=== PATIENT | female | born 1965 | race Caucasian/White ===

== ENCOUNTER 2022-11-27 10:44 | Emergency (ER) | payer OTHER ==
[~2022-11-27] VITALS: Ht 152.4 cm; Wt 77.6 kg
[~2022-11-27 10:44] MED LIST: Motrin,Rufen800 MG PO; Orphenadrine C100 MG PO
[2022-11-27 10:52] VITALS: BP 144/107
[2022-11-27 11:38] LABS: EOS % 0.5 % (1.0-4.0); HEMATOCRIT 40.1 % (37.0-47.0); LYMPH # 1.1 10*3/uL (1.3-4.4); LYMPH % 28.2 % (27.0-41.0); MEAN CELL VOLUME 97.3 fl (81.0-99.0); MEAN CORPUSCULAR HGB 31.6 pg (27.0-31.0); MEAN CORPUSCULAR HGB CONC 32.4 g/dl (33.0-37.0); MEAN PLATELET VOLUME 9.1 fl (9.6-12.3); MONO # 0.3 10*3/uL (0.1-1.0); MONO % 6.9 % (3.0-9.0); NEUT # 2.5 10*3/uL (2.3-7.9); NEUT % 63.1 % (47.0-73.0); PLATELET COUNT AUTOMATED 387 10*3/uL (130-400); RED BLOOD COUNT 4.12 10*6/uL (4.10-5.10); RED CELL DISTRI WIDTH 13.2 % (0-14.5); WHITE BLOOD COUNT 3.9 10*3/uL (4.8-10.8)
[2022-11-27 11:53] LABS: ALKALINE PHOSPHATASE 72 U/L (46-116); BUN 9 mg/dl (9-23); CHLORIDE 108 mmol/L (98-107); POTASSIUM 3.7 mmol/L (3.4-5.1); SGPT/ALT 26 U/L (10-49); TOTAL PROTEIN 7.1 gm/dL (6.0-8.0)
== END 2022-11-27 12:16 | disposition home or self-care (01) ==
LOC: ED 10:44
PROVIDERS: Nurse Practitioner Family
DX: S01.01XA Laceration without foreign body of scalp, initial encounter (principal); W18.30XA Fall on same level, unspecified, initial encounter; Y93.89 Activity, other specified; Y92.89 Other specified places as the place of occurrence of the external cause; Y99.8 Other external cause status

== ENCOUNTER 2024-03-17 15:06 | Emergency (ER) | payer OTHER ==
[~2024-03-17] VITALS: Ht 152.4 cm; Wt 86.2 kg
[~2024-03-17 15:06] MED LIST changes: +'XANAX0.5 MG PO; +BUSPAR5 MG PO; +CELECOXIB200 M1 PO; +CLARITIN10 MG PO; +DULOXETINE HCL60 MG PO; +METAMUCIL PACK3.4 GM PO; +NEXIUM 24HR20 M1 PO; +SIMVASTATIN20 MG PO; +SUMATRIPTAN SU100 M1 PO; +TRAZODONE50 MG PO
[2024-03-17] MEDS ORDERED: Ondansetron Hydrochloride 4 MG/2 ML VIAL IV ONE (15:50)
[2024-03-17 16:05] LABS: BASO % 0.7 % (0.0-1.0); EOS % 0.7 % (1.0-4.0); HEMATOCRIT 40.7 % (37.0-47.0); LYMPH # 2.4 10*3/uL (1.3-4.4); MEAN CELL VOLUME 98.3 fl (81.0-99.0); MEAN CORPUSCULAR HGB 30.9 pg (27.0-31.0); MEAN CORPUSCULAR HGB CONC 31.4 g/dl (33.0-37.0); MEAN PLATELET VOLUME 8.9 fl (9.6-12.3); MONO # 0.4 10*3/uL (0.1-1.0); MONO % 6.6 % (3.0-9.0); NEUT # 2.6 10*3/uL (2.3-7.9); NEUT % 47.8 % (47.0-73.0); PLATELET COUNT AUTOMATED 290 10*3/uL (130-400); RED BLOOD COUNT 4.14 10*6/uL (4.10-5.10); RED CELL DISTRI WIDTH 12.2 % (0-14.5); WHITE BLOOD COUNT 5.5 10*3/uL (4.8-10.8)
[2024-03-17 16:16] LABS: ACT PARTIAL THROMBO TIME 27.9 SECONDS (20.0-32.1)
[2024-03-17 16:30] LABS: ALKALINE PHOSPHATASE 87 U/L (46-116); BUN 12 mg/dl (9-23); CHLORIDE 108 mmol/L (98-107); SGPT/ALT 14 U/L (5-49); TOTAL PROTEIN 6.7 gm/dL (6.0-8.0)
[2024-03-17] MEDS ORDERED: SODIUM CHLORIDE 0.9% 500 ML IV ONE (17:20)
[2024-03-17] MEDS ORDERED: diphenhydrAMINE hydrochloride 50 MG/ML VIAL IV ONE (17:20)
[2024-03-17] MEDS ORDERED: Metoclopramide Hydrochloride 10 MG/2 ML AMP IV ONE (17:20)
[2024-03-17] MEDS ORDERED: Ketorolac Tromethamine 30 MG/ML VIAL IV ONE (17:20)
[2024-03-17 18:52] VITALS: BP 118/70
== END 2024-03-17 18:53 | disposition home or self-care (01) ==
LOC: ED 15:06
PROVIDERS: Nurse Practitioner Family
DX: R55 Syncope and collapse (principal); G43.909 Migraine, unspecified, not intractable, without status migrainosus; R07.89 Other chest pain; R42 Dizziness and giddiness; F41.9 Anxiety disorder, unspecified; E78.00 Pure hypercholesterolemia, unspecified; I10 Essential (primary) hypertension; E87.0 Hyperosmolality and hypernatremia; E78.5 Hyperlipidemia, unspecified; F32.A Depression, unspecified; I25.10 Atherosclerotic heart disease of native coronary artery without angina pectoris; Z88.8 Allergy status to other drugs, medicaments and biological substances

== ENCOUNTER 2024-07-19 18:23 | Inpatient (IN) | payer OTHER ==
[~2024-07-19] VITALS: Ht 157.5 cm; Wt 84.6 kg
[2024-07-19] MEDS ORDERED: FAMOTIDINE 50 ML IV ONE (18:30)
[2024-07-19] MEDS ORDERED: Metoclopramide Hydrochloride 10 MG/2 ML AMP IV ONE (18:30)
[2024-07-19] MEDS ORDERED: SODIUM CHLORIDE 0.9% 1,000 ML IV ONE ×3 (18:30→18:35)
[2024-07-19] MEDS ORDERED: diphenhydrAMINE hydrochloride 50 MG/ML VIAL IV ONE (18:30)
[2024-07-19 18:33] VITALS: BP 120/63
[2024-07-19] MEDS ORDERED: ACETAMINOPHEN 325 MG TAB PO ONE (18:40)
[2024-07-19 18:55] VITALS: BP 126/87
[2024-07-19] MEDS ORDERED: Metoprolol Tartrate 5 MG/5 ML VIAL IV ONE (19:00)
[2024-07-19 19:08] LABS: HEMATOCRIT 44.1 % (37.0-47.0); MEAN CELL VOLUME 96.3 fl (81.0-99.0); MEAN CORPUSCULAR HGB 31.2 pg (27.0-31.0); MEAN CORPUSCULAR HGB CONC 32.4 g/dl (33.0-37.0); MEAN PLATELET VOLUME 8.9 fl (9.6-12.3); PLATELET COUNT AUTOMATED 322 10*3/uL (130-400); RED BLOOD COUNT 4.58 10*6/uL (4.10-5.10)
[2024-07-19 19:09] LABS: MANUAL DIFF REFLEX YES
[2024-07-19 19:33] LABS: BUN 13 mg/dl (9-23); CHLORIDE 111 mmol/L (98-107); PLATELET SUFFICIENCY NORMAL (NORMAL); POTASSIUM 3.5 mmol/L (3.4-5.1); TOTAL CELLS COUNTED 100 #CELLS
[2024-07-19 20:33] VITALS: BP 105/56
[2024-07-19 21:50] LABS: BILIRUBIN Negative (Negative); BLOOD 1+ (Negative); CLARITY Clear (Clear); COLOR Yellow (Yellow); GLUCOSE Negative (Negative); KETONE Negative (Negative); LEUKO ESTERASE Negative (Negative); NITRITE Negative (Negative); PH 5.5 (4.5-8.0); SPECIFIC GRAVITY 1.025 (1.001-1.030); UROBILINOGEN 0.2 E.U./dl (0.0-1.0)
[2024-07-19 21:58] LABS: BACTERIA 1+; MUCOUS 1+; WBC 0-2 wbc/hpf (0-5)
[2024-07-19] MEDS ORDERED: Ceftriaxone Sodium 1 GM/10 ML SYR IV ONE (22:05)
[2024-07-19] MEDS ORDERED: TOPROL XL25 MG PO (22:12)
[2024-07-19] MEDS ORDERED: PANTOPRAZOLE SO40 MG PO (22:12)
[2024-07-19] MEDS ORDERED: OXYBUTYNIN10 MG PO (22:12)
[2024-07-19] MEDS ORDERED: COLESTIPOL HYDRO1 GM PO (22:13)
[2024-07-19] MEDS ORDERED: DICYCLOMINE HYD10 MG PO (22:13)
[2024-07-19] MEDS ORDERED: IMITREX100 MG PO (22:14)
[2024-07-19] MEDS ORDERED: HEARTBURN RELIE20 MG PO (22:14)
[2024-07-19] MEDS ORDERED: Ondansetron4 MG PO (22:14)
[2024-07-19] MEDS ORDERED: WELLBUTRIN SR150 MG PO (22:15)
[2024-07-19] MEDS ORDERED: HYDROXYZINE HCL25 MG PO (22:15)
[2024-07-19] MEDS ORDERED: MAGNESIUM OXID400 MG PO (22:15)
[2024-07-19] MEDS ORDERED: VALIUM5 MG PO (22:16)
[2024-07-19] MEDS ORDERED: Magnesium Hydroxide 30 ML UDC PO PRN (22:25)
[2024-07-19] MEDS ORDERED: ACETAMINOPHEN 650 MG SUPP R PRN (22:25)
[2024-07-19] MEDS ORDERED: MORPHINE Sulfate 2 MG/ML SYR IV PRN (22:25)
[2024-07-19] MEDS ORDERED: TEMAZEPAM 15 MG CAP PO PRN (22:25)
[2024-07-19] MEDS ORDERED: ACETAMINOPHEN 325 MG TAB PO PRN (22:25)
[2024-07-19] MEDS ORDERED: BISACODYL 5 MG TAB PO PRN (22:25)
[2024-07-19] MEDS ORDERED: Acetaminophen/Hydrocodone 5 MG/325 MG TABLET PO PRN (22:25)
[2024-07-19] MEDS ORDERED: BISACODYL 10 MG SUPP R PRN (22:25)
[2024-07-19] MEDS ORDERED: Ondansetron Hydrochloride 4 MG/2 ML VIAL IV PRN (22:25)
[2024-07-19] MEDS ORDERED: SODIUM CHLORIDE 0.9% 1,000 ML IV SCH (22:30)
[2024-07-20 00:01] VITALS: BP 113/62
[2024-07-20 05:40] VITALS: BP 128/67
[2024-07-20] MEDS ORDERED: Pantoprazole Sodium 40 MG TAB PO SCH (06:00)
[2024-07-20 07:29] LABS: BASO % 0.4 % (0.0-1.0); EOS % 0.2 % (1.0-4.0); HEMATOCRIT 35.8 % (37.0-47.0); LYMPH # 0.9 10*3/uL (1.3-4.4); LYMPH % 18.1 % (27.0-41.0); MEAN PLATELET VOLUME 8.9 fl (9.6-12.3); MONO # 0.4 10*3/uL (0.1-1.0); MONO % 6.9 % (3.0-9.0); NEUT # 3.8 10*3/uL (2.3-7.9); NEUT % 73.8 % (47.0-73.0); RED BLOOD COUNT 3.69 10*6/uL (4.10-5.10); RED CELL DISTRI WIDTH 12.9 % (0-14.5); WHITE BLOOD COUNT 5.1 10*3/uL (4.8-10.8)
[2024-07-20 07:31] LABS: PLATELET COUNT AUTOMATED 224 10*3/uL (130-400)
[2024-07-20 07:38] LABS: ACT PARTIAL THROMBO TIME 27.5 SECONDS (20.0-32.1)
[2024-07-20 07:57] LABS: ALKALINE PHOSPHATASE 84 U/L (46-116); BUN 10 mg/dl (9-23); CHLORIDE 111 mmol/L (98-107); CHOLESTEROL 174 mg/dL (<200); FREE T4 0.96 ng/dl (0.89-1.76); LDL CHOLESTEROL 108 mg/dL (9-159); POTASSIUM 3.3 mmol/L (3.4-5.1); SGPT/ALT 12 U/L (5-49); TOTAL PROTEIN 6.1 gm/dL (6.0-8.0); TRIGLYCERIDES 144 mg/dl (<150)
[2024-07-20 08:27] VITALS: BP 103/57
[2024-07-20] MEDS ORDERED: Enoxaparin Sodium 40 MG/0.4 ML SYR SC SCH (10:00)
[2024-07-20 16:53] VITALS: BP 129/72
[2024-07-20] MEDS ORDERED: Dicyclomine Hydrochloride 10 MG CAP PO SCH (18:00)
[2024-07-20] MEDS ORDERED: Ceftriaxone Sodium 1 GM in SYRINGE INFUSION 10 ML IV SCH (22:00)
[2024-07-20 23:15] VITALS: BP 128/74
[2024-07-21] VITALS: BP 128/74
[2024-07-21] MEDS ORDERED: Ketorolac Tromethamine 15 MG/ML VIAL IV ONE ×2 (04:00→10:55)
[2024-07-21 07:02] LABS: BASO % 0.2 % (0.0-1.0); EOS % 0.4 % (1.0-4.0); HEMATOCRIT 37.1 % (37.0-47.0); LYMPH # 1.1 10*3/uL (1.3-4.4); LYMPH % 19.6 % (27.0-41.0); MEAN CELL VOLUME 94.4 fl (81.0-99.0); MEAN CORPUSCULAR HGB 32.1 pg (27.0-31.0); MEAN PLATELET VOLUME 8.8 fl (9.6-12.3); MONO # 0.5 10*3/uL (0.1-1.0); MONO % 8.6 % (3.0-9.0); NEUT % 70.8 % (47.0-73.0); PLATELET COUNT AUTOMATED 232 10*3/uL (130-400); RED BLOOD COUNT 3.93 10*6/uL (4.10-5.10); RED CELL DISTRI WIDTH 12.5 % (0-14.5); WHITE BLOOD COUNT 5.7 10*3/uL (4.8-10.8)
[2024-07-21 07:28] LABS: CHLORIDE 107 mmol/L (98-107)
[2024-07-21 07:38] LABS: BUN < 5 mg/dl (9-23)
[2024-07-21 08:00] VITALS: BP 122/69
[2024-07-21] MEDS ORDERED: POTASSIUM CHLORIDE IN WATER 100 ML IV SCH (09:00)
[2024-07-21] MEDS ORDERED: buPROPion SR 150 MG TAB PO SCH (10:00)
[2024-07-21] MEDS ORDERED: METOPROLOL SUCCINATE XR 25 MG TAB PO SCH (10:00)
[2024-07-21] MEDS ORDERED: Duloxetine Hydrochloride 60 MG CAP PO SCH (10:00)
[2024-07-21 12:00] VITALS: BP 132/66
[2024-07-21] MEDS ORDERED: SUMATRIPTAN SUCCINATE 100 MG TAB PO PRN (14:00)
[2024-07-21 16:00] VITALS: BP 132/72
[2024-07-21 20:00] VITALS: BP 121/51
[2024-07-22 00:20] VITALS: BP 96/72
[2024-07-22 06:15] LABS: BASO % 0.7 % (0.0-1.0); EOS # 0.1 10*3/uL (0.0-0.4); EOS % 1.9 % (1.0-4.0); HEMATOCRIT 37.8 % (37.0-47.0); LYMPH # 1.8 10*3/uL (1.3-4.4); LYMPH % 43.9 % (27.0-41.0); MEAN CELL VOLUME 96.4 fl (81.0-99.0); MEAN CORPUSCULAR HGB 30.6 pg (27.0-31.0); MEAN CORPUSCULAR HGB CONC 31.7 g/dl (33.0-37.0); MEAN PLATELET VOLUME 8.9 fl (9.6-12.3); MONO # 0.5 10*3/uL (0.1-1.0); MONO % 12.4 % (3.0-9.0); NEUT # 1.7 10*3/uL (2.3-7.9); NEUT % 40.9 % (47.0-73.0); PLATELET COUNT AUTOMATED 222 10*3/uL (130-400); RED BLOOD COUNT 3.92 10*6/uL (4.10-5.10); RED CELL DISTRI WIDTH 12.3 % (0-14.5); WHITE BLOOD COUNT 4.2 10*3/uL (4.8-10.8)
[2024-07-22 06:52] LABS: BUN 8 mg/dl (9-23); CHLORIDE 107 mmol/L (98-107); POTASSIUM 3.2 mmol/L (3.4-5.1)
[2024-07-22 08:00] VITALS: BP 118/66
[2024-07-22] MEDS ORDERED: POTASSIUM CHLORIDE 20 MEQ TAB PO ONE (08:20)
[2024-07-22] MEDS ORDERED: Cholecalciferol 2,000 UNIT TABLET (50 MCG) PO SCH (10:00)
[2024-07-22] MEDS ORDERED: VITAMIN D350 MCG PO (11:12)
[2024-07-22] MEDS ORDERED: MACROBID100 M1 PO (11:12)
== END 2024-07-22 12:02 | disposition home or self-care (01) | DRG 872 ==
LOC: ED 18:23 → 4E 22:09 → EDHOLD 22:09 → 4E 07-20 22:54
PROVIDERS: Emergency Medicine; Student in an Organized Health Care Education/Training Program; ADMIT Internal Medicine; ATTEND Internal Medicine
DX: A41.9 Sepsis, unspecified organism (principal); N39.0 Urinary tract infection, site not specified; E87.6 Hypokalemia; E83.51 Hypocalcemia; E78.5 Hyperlipidemia, unspecified; K58.9 Irritable bowel syndrome, unspecified; G43.909 Migraine, unspecified, not intractable, without status migrainosus; G47.00 Insomnia, unspecified; D64.9 Anemia, unspecified; E87.8 Other disorders of electrolyte and fluid balance, not elsewhere classified; R73.9 Hyperglycemia, unspecified; E88.09 Other disorders of plasma-protein metabolism, not elsewhere classified; F41.9 Anxiety disorder, unspecified; Z88.8 Allergy status to other drugs, medicaments and biological substances; Z79.899 Other long term (current) drug therapy; Z79.01 Long term (current) use of anticoagulants; Z79.2 Long term (current) use of antibiotics

== ENCOUNTER 2025-01-03 21:43 | Emergency (ER) | payer OTHER ==
[~2025-01-03] VITALS: Wt 87.5 kg
[~2025-01-03 21:43] MED LIST changes: +COLESTIPOL HYDRO1 GM PO; +DICYCLOMINE HYD10 MG PO; +HEARTBURN RELIE20 MG PO; +HYDROXYZINE HCL25 MG PO; +IMITREX100 MG PO; +MACROBID100 M1 PO; +MAGNESIUM OXID400 MG PO; +OXYBUTYNIN10 MG PO; +Ondansetron4 MG PO; +PANTOPRAZOLE SO40 MG PO; +TOPROL XL25 MG PO; +VALIUM5 MG PO; +VITAMIN D350 MCG PO; +WELLBUTRIN SR150 MG PO
[2025-01-03 22:13] VITALS: BP 108/66
[2025-01-03 23:32] LABS: BASO # 0.1 10*3/uL (0.0-0.1); BASO % 0.5 % (0.0-1.0); EOS % 0.4 % (1.0-4.0); HEMATOCRIT 38.3 % (37.0-47.0); MEAN CORPUSCULAR HGB 30.1 pg (27.0-31.0); MEAN CORPUSCULAR HGB CONC 31.1 g/dl (33.0-37.0); MEAN PLATELET VOLUME 9.1 fl (9.6-12.3); MONO # 0.5 10*3/uL (0.1-1.0); MONO % 5.9 % (3.0-9.0); NEUT # 6.5 10*3/uL (2.3-7.9); NEUT % 71.1 % (47.0-73.0); PLATELET COUNT AUTOMATED 266 10*3/uL (130-400); RED BLOOD COUNT 3.95 10*6/uL (4.10-5.10); RED CELL DISTRI WIDTH 12.8 % (0-14.5); WHITE BLOOD COUNT 9.1 10*3/uL (4.8-10.8)
[2025-01-03 23:51] LABS: BUN 18 mg/dl (9-23); CHLORIDE 105 mmol/L (98-107); POTASSIUM 3.9 mmol/L (3.4-5.1)
[2025-01-04] MEDS ORDERED: MEDROL DOSEPAK4 MG PO (01:24)
[2025-01-04] MEDS ORDERED: MUCUS RELIEF E600 MG PO (01:24)
== END 2025-01-04 01:51 | disposition home or self-care (01) ==
LOC: ED 21:43
PROVIDERS: Internal Medicine
DX: R05.9 Cough, unspecified (principal); Z91.048 Other nonmedicinal substance allergy status; Z79.899 Other long term (current) drug therapy; Z90.49 Acquired absence of other specified parts of digestive tract; Z96.641 Presence of right artificial hip joint; Z86.711 Personal history of pulmonary embolism